=== PATIENT | male | born 1995 | race Caucasian/White ===

== ENCOUNTER 2016-09-29 13:59 | Emergency (ER) | payer OTHER ==
[~2016-09-29] VITALS: Ht 180.3 cm; Wt 79.0 kg
[~2016-09-29 13:59] MED LIST: IBUP600T26 PO
[2016-09-29 14:04] VITALS: BP 135/80; PULSE 68; RESP 16; TEMP 97.8; O2SAT 100
[2016-09-29] MEDS ORDERED: ROBA500T PO (15:02)
[2016-09-29] MEDS ORDERED: IBUP800T23 PO (15:02)
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
[2016-09-29] MEDS ORDERED: IBUPROFEN 800 MG TAB PO ONE (15:15)
[2016-09-29] MEDS ORDERED: METHOCARBAMOL 500 MG TAB PO ONE (15:15)
== END 2016-09-29 15:18 | disposition home or self-care (01) ==
LOC: NEPB 13:59 → MERGE 13:59 → NEPB 15:18
DX: S16.1XXA Strain of muscle, fascia and tendon at neck level, initial encounter (principal); S46.811A Strain of other muscles, fascia and tendons at shoulder and upper arm level, right arm, initial encounter; Z72.0 Tobacco use; Z87.19 Personal history of other diseases of the digestive system; V89.2XXA Person injured in unspecified motor-vehicle accident, traffic, initial encounter
CPT/HCPCS: 99283